=== PATIENT | female | born 1950 | race Caucasian/White ===

== ENCOUNTER → 2021-11-16 | Day surgery (SDC) | payer MEDICARE, OTHER ==
[~2021-11-16] MED LIST: ALLERGY RELIEF5 MG PO; ASPIRIN CHEWABL81 MG PO; AVAPRO300 MG PO; CALCIUM + VITA1 EACH PO; D3 + K2 DOTS 11 EACH PO; FLONASE 0.05% N16 GM; GENICIN500 MG PO; GINKGO BILOBA120 M1 PO; HYDROCHLOROTHIA25 MG PO; KLOR-CON 1010 MEQ PO; LEXAPRO20 MG PO; MEGA BIOTIN10000 MCG PO; MELOXICAM15 MG PO; OMEGA 3 1,0001 EACH PO; PROTONIX 40 MG40 MG PO; SINGULAIR10 MG PO; SUPER QUINTS1 EACH PO; ZINC50 M2 PO
== END | disposition home or self-care (01) ==
LOC: OR 06:44
DX: Z12.11 Encounter for screening for malignant neoplasm of colon (principal); K57.30 Diverticulosis of large intestine without perforation or abscess without bleeding; K64.1 Second degree hemorrhoids; K62.89 Other specified diseases of anus and rectum; K21.9 Gastro-esophageal reflux disease without esophagitis; I25.10 Atherosclerotic heart disease of native coronary artery without angina pectoris; I10 Essential (primary) hypertension; E78.5 Hyperlipidemia, unspecified; Z79.82 Long term (current) use of aspirin; Z79.899 Other long term (current) drug therapy
CPT/HCPCS: J2704